=== PATIENT | male | born 1955 | race African-American/Black ===

== ENCOUNTER 2019-07-15 11:18 | Inpatient (IN) | payer OTHER ==
--- NOTE | 2019-07-15 11:33 | BHS.RME ---
Substance Use & Tx History - Substance Use History Alcohol Substance amount: 1 pint vodka and beers Frequency of use: Daily Substance route: Oral Date of Last Use: 07/15/19 Physical/Psych/Mental Status - Behavior General Behavior: Increased activity (restlessness, agitation) Eye Contact: Normal - Cooperativeness Cooperativeness: Reluctant - Thinking Thought Processes: Tight, Logical, Goal Directed Thought content: Future oriented - Physical Health Problems Is patient presently having any pain?: No Does patient presently have any injuries (include location): No Does patient currently have a fever: No Is patient : No CIWA Nausea/Vomitin-No Nausea/No Vomiting Muscle Tremors: 4-Moderate,w/Arms Extend Anxiety: 3 Agitation: 4-Moderately Restless Paroxysmal Sweats: 4-Forehead w/Sweat Beads Orientation: 1-Uncertain about Date Tacttile Disturbances: 0-None Auditory Disturbances: 0-None Visual Disturbances: 0-None Headache: 0-None Present CIWA-Ar Total Score: 16
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
[2019-07-15] MEDS ORDERED: MAGNESIUM CITRATE 300 ML BOTTLE PO PRN (14:21)
[2019-07-15] MEDS ORDERED: BISMUTH SUBSALICYLATE 524 MG/30 ML UD PO PRN (14:21)
[2019-07-15] MEDS ORDERED: MENTHOL/PHENOL 1 EACH UD MM PRN (14:21)
[2019-07-15] MEDS ORDERED: ACETAMINOPHEN 325 MG TABLET (FP) PO PRN ×2 (14:21)
[2019-07-15] MEDS ORDERED: IBUPROFEN 400 MG TABLET (FP) PO PRN (14:21)
[2019-07-15] MEDS ORDERED: MAG HYDROX/AL HYDROX/SIMETH 30 ML UNIT-DOSE CUP PO PRN (14:21)
[2019-07-15] MEDS ORDERED: chlordiazePOXIDE HCL 25 MG CAPSULE PO PRN (14:21)
[2019-07-15] MEDS ORDERED: MAGNESIUM HYDROX 2400MG/30ML ORAL SUSPENSION 30 ML CUP PO PRN (14:21)
[2019-07-15] MEDS ORDERED: METHOCARBAMOL 500 MG TABLET PO PRN (14:21)
[2019-07-15 15:46] VITALS: BMI 25.2
[2019-07-15] MEDS ORDERED: ONDANSETRON *ODT* 4 MG TABLET SL ONE (16:15)
[2019-07-15] MEDS ORDERED: FUROSEMIDE 20 MG TABLET (FP) PO SCH (16:15)
[2019-07-15] MEDS ORDERED: IBUPROFEN 400 MG TABLET (FP) PO ONE (16:15)
[2019-07-15] MEDS ORDERED: chlordiazePOXIDE HCL 25 MG CAPSULE PO SCH (17:00)
[2019-07-15 17:21] LABS: HEMATOCRIT 37.3 % (35.4-49); HEMOGLOBIN 12.4 GM/dL (11.7-16.9); MCH 32.8 pg (25.7-33.7); MCHC 33.3 g/dl (32.0-35.9); MEAN CELL VOLUME 98.3 fl (80-96); MEAN PLT VOLUME 8.4 fl (7.5-11.1); PLATELET COUNT 600 K/MM3 (134-434); RDW 14.2 % (11.9-15.9); WHITE BLOOD COUNT 4.2 K/mm3 (4.0-10.0)
[2019-07-15] MEDS: FUROSEMIDE 40 MG TABLET (FP) PO SCH (17:21)
[2019-07-15] MEDS: metoPROLOL SUCCINATE 25 MG TAB.SR.24H (FP) PO SCH (17:21)
[2019-07-15] MEDS: TAMSULOSIN HCL 0.4 MG CAP PO SCH (17:21)
[2019-07-15] MEDS: hydrOXYzine PAMOATE 25 MG CAPSULE (FP) PO SCH ×2 (17:21→21:25)
[2019-07-15 17:30] LABS: ALBUMIN 3.7 g/dl (3.4-5.0); BILIRUBIN,TOTAL 0.9 mg/dL (0.2-1); BLOOD UREA NITROGEN 5.6 mg/dL (7-18); CALCIUM 9.5 mg/dL (8.5-10.1); CREATININE 0.8 mg/dL (0.55-1.3); POTASSIUM 4.2 mmol/L (3.5-5.1); TOT PROT 7.2 g/dl (6.4-8.2)
--- NOTE | 2019-07-15 21:19 | PN ---
BHS Progress Note Note: called by nursing re : abnormal BP Vital Signs - 24 hr 07/15/19 07/15/19 15:43 16:33 Temperature 98.9 F 100.0 F H Pulse Rate 122 H 127 H Respiratory 18 18 Rate Blood Pressure 154/87 146/87 Vital Signs - 24 hr 07/15/19 07/15/19 07/15/19 15:43 16:33 21:17 Temperature 98.9 F 100.0 F H 97.0 F L Pulse Rate 122 H 127 H 97 H Respiratory 18 18 19 Rate Blood Pressure 154/87 146/87 161/89 P : metoprolol 25 mg x once
[2019-07-15] MEDS ORDERED: METOPROLOL TARTRATE 25 MG TABLET (FP) PO ONE (21:20)
[2019-07-15] MEDS: MELATONIN 5 MG TABLETS PO SCH (21:25)
[2019-07-15] MEDS: THIAMINE HCL 100 MG TABLET (FP) PO SCH (21:25)
[2019-07-15] MEDS: chlordiazePOXIDE HCL 25 MG CAPSULE PO SCH (21:25)
[2019-07-16] MEDS: chlordiazePOXIDE HCL 25 MG CAPSULE PO SCH (05:34)
[2019-07-16] MEDS: hydrOXYzine PAMOATE 25 MG CAPSULE (FP) PO SCH ×5 (05:35→22:58)
--- NOTE | 2019-07-16 10:01 | PN ---
S CIWA - CIWA Score Nausea/Vomitin Muscle Tremors: 3 Anxiety: 3 Agitation: 1-Slight > Activity Paroxysmal Sweats: 2 Orientation: 0-Oriented Tacttile Disturbances: 0-None Auditory Disturbances: 0-None Visual Disturbances: 1-Very Mild Sensitivity Headache: 1-Very Mild CIWA-Ar Total Score: 13 S Progress Note (SOAP) Subjective: 64 years old male admitted on 07/15/19 for alcohol withdrawal sx management treating [facility] detox regiment ambulating with wheelchair from room to hallway ekg indicts sinus tachycardia with premature ventricular complex and history of septal infarct no previous ekg for comparison patient denies chest pain no shortness of breath ate breakfast tolerated food and fluid well Objective: 07/16/19 10:04 Vital Signs Temperature 99.4 F 07/16/19 07:49 Pulse Rate 106 H 07/16/19 07:49 Respiratory Rate 20 07/16/19 07:49 Blood Pressure 120/67 07/16/19 07:49 O2 Sat by Pulse Oximetry (%) Laboratory Last Values WBC 4.2 K/mm3 (4.0-10.0) 07/15/19 15:00 RBC 3.80 M/mm3 (4.00-5.60) L 07/15/19 15:00 Hgb 12.4 GM/dL (11.7-16.9) 07/15/19 15:00 Hct 37.3 % (35.4-49) 07/15/19 15:00 MCV 98.3 fl (80-96) H 07/15/19 15:00 MCH 32.8 pg (25.7-33.7) 07/15/19 15:00 MCHC 33.3 g/dl (32.0-35.9) 07/15/19 15:00 RDW 14.2 % (11.9-15.9) 07/15/19 15:00 Plt Count 600 K/MM3 (134-434) H 07/15/19 15:00 MPV 8.4 fl (7.5-11.1) 07/15/19 15:00 Platelet Comment Giant platelets 07/15/19 15:00 Sodium 143 mmol/L (136-145) 07/15/19 15:00 Potassium 4.2 mmol/L (3.5-5.1) 07/15/19 15:00 Chloride 106 mmol/L (98-107) 07/15/19 15:00 Carbon Dioxide 26 mmol/L (21-32) 07/15/19 15:00 Anion Gap 11 MMOL/L (8-16) 07/15/19 15:00 BUN 5.6 mg/dL (7-18) L 07/15/19 15:00 Creatinine 0.8 mg/dL (0.55-1.3) 07/15/19 15:00 Est GFR (CKD-EPI)AfAm 108.65 07/15/19 15:00 Est GFR (CKD-EPI)NonAf 93.74 07/15/19 15:00 Random Glucose 126 mg/dL (74-106) H 07/15/19 15:00 Calcium 9.5 mg/dL (8.5-10.1) 07/15/19 15:00 Total Bilirubin 0.9 mg/dL (0.2-1) 07/15/19 15:00 AST 162 U/L (15-37) H 07/15/19 15:00 ALT 88 U/L (13-61) H 07/15/19 15:00 Alkaline Phosphatase 61 U/L (45-117) 07/15/19 15:00 Total Protein 7.2 g/dl (6.4-8.2) 07/15/19 15:00 Albumin 3.7 g/dl (3.4-5.0) 07/15/19 15:00 RPR Titer Nonreactive (NONREACTIVE) 07/15/19 15:00 lab noted 07/16/19 10:14 ast elevation discontinue librium begin ativan detox regiment patient agrees glucose elevation fasting glucose 07/16/19 10:16 plt elevation begin aspirin Assessment: 07/16/19 10:17 alcohol withdrawal Plan: librium regiment
[2019-07-16] MEDS ORDERED: LORazepam 1 MG TABLET PO PRN (10:13)
[2019-07-16] MEDS: FUROSEMIDE 40 MG TABLET (FP) PO SCH (10:42)
[2019-07-16] MEDS: metoPROLOL SUCCINATE 25 MG TAB.SR.24H (FP) PO SCH (10:42)
[2019-07-16] MEDS: TAMSULOSIN HCL 0.4 MG CAP PO SCH (10:42)
[2019-07-16] MEDS: PRENATAL VITAMINS W/ FOLIC ACID TABLET (FP) PO SCH (10:42)
[2019-07-16] MEDS: ASPIRIN 81 MG CHEWABLE TABLETS PO SCH (10:45)
[2019-07-16] MEDS: LORazepam 2 MG TABLET PO SCH ×3 (12:54→22:58)
--- NOTE | 2019-07-16 14:07 | EKG ---
Test Reason : Blood Pressure : / mmHG Vent. Rate : 129 BPM Atrial Rate : 129 BPM P-R Int : 146 ms QRS Dur : 074 ms QT Int : 308 ms P-R-T Axes : 076 077 076 degrees QTc Int : 451 ms POOR DATA QUALITY, INTERPRETATION MAY BE ADVERSELY AFFECTED SINUS TACHYCARDIA WITH PREMATURE SUPRAVENTRICULAR COMPLEXES MINIMAL VOLTAGE CRITERIA FOR LVH, MAY BE NORMAL VARIANT BORDERLINE ECG NO PREVIOUS ECGS AVAILABLE Confirmed by PREET WHITMAN, ADAMA ([id number]) on 07/16/2019 2:06:29 PM Referred By: Confirmed By:ADAMA OVIEOD MD
[2019-07-16] MEDS: MELATONIN 5 MG TABLETS PO SCH (22:58)
[2019-07-16] MEDS: THIAMINE HCL 100 MG TABLET (FP) PO SCH (22:58)
[2019-07-17] MEDS ORDERED: chlordiazePOXIDE 5 MG CAPSULE PO SCH (05:00)
[2019-07-17] MEDS ORDERED: chlordiazePOXIDE HCL 25 MG CAPSULE PO SCH (05:00)
[2019-07-17] MEDS: hydrOXYzine PAMOATE 25 MG CAPSULE (FP) PO SCH ×5 (06:07→22:46)
[2019-07-17] MEDS: LORazepam 1 MG TABLET PO SCH ×4 (06:07→22:39)
--- NOTE | 2019-07-17 10:15 | PN ---
[facility] CIWA - CIWA Score Nausea/Vomitin-No Nausea/No Vomiting Muscle Tremors: None Anxiety: 0-No Anxiety, at Ease Agitation: 0-Normal Activity Paroxysmal Sweats: 1-Minimal Palms Moist Orientation: 3-Disoriented Date>2 days Tacttile Disturbances: 0-None Auditory Disturbances: 0-None Visual Disturbances: 0-None Headache: 0-None Present CIWA-Ar Total Score: 4 BHS Progress Note (SOAP) Subjective: No complaints Objective: 07/17/19 10:13 Laboratory Tests 07/15/19 07/15/19 07/15/19 15:00 15:00 15:00 WBC 4.2 RBC 3.80 L Hgb 12.4 Hct 37.3 MCV 98.3 H MCH 32.8 MCHC 33.3 RDW 14.2 Plt Count 600 H MPV 8.4 Platelet Comment Giant platelets Sodium 143 Potassium 4.2 Chloride 106 Carbon Dioxide 26 Anion Gap 11 BUN 5.6 L Creatinine 0.8 Est GFR (CKD-EPI)AfAm 108.65 Est GFR (CKD-EPI)NonAf 93.74 Random Glucose 126 H Calcium 9.5 Total Bilirubin 0.9 AST 162 H ALT 88 H Alkaline Phosphatase 61 Total Protein 7.2 Albumin 3.7 RPR Titer Nonreactive Vital Signs - 24 hr 07/16/19 07/16/19 07/16/19 13:01 15:00 16:51 Temperature 97.9 F 99.2 F Pulse Rate 121 H 100 H 138 H Respiratory 16 18 Rate Blood Pressure 121/67 120/83 07/16/19 07/16/19 07/16/19 18:00 21:06 23:34 Temperature 100.7 F H 97.8 F Pulse Rate 100 H 131 H 78 Respiratory 19 Rate Blood Pressure 103/26 L 07/17/19 07/17/19 07/17/19 00:35 03:30 06:16 Temperature 99.2 F Pulse Rate 65 Respiratory 18 16 18 Rate Blood Pressure 112/65 07/17/19 09:18 Temperature 97.1 F L Pulse Rate 128 H Respiratory 20 Rate Blood Pressure 103/60 PE Gnl: WDWN, in no distress, malodorous MS: awake, states the date is the 16, follows commands Motor: nl UE movement Assessment: 07/17/19 10:14 1. alcohol use disorder, disoriented to date may be secondary to EtOH withdrawal for developing dementia/ unclear 2. mildly elevated glucose on admission Plan: 1. continue Ativan withdrawal, elevated LFTs 2. FBS
[2019-07-17] MEDS: PRENATAL VITAMINS W/ FOLIC ACID TABLET (FP) PO SCH (10:36)
[2019-07-17] MEDS: TAMSULOSIN HCL 0.4 MG CAP PO SCH (10:36)
[2019-07-17] MEDS: FUROSEMIDE 40 MG TABLET (FP) PO SCH (10:37)
[2019-07-17] MEDS: ASPIRIN 81 MG CHEWABLE TABLETS PO SCH (10:37)
[2019-07-17] MEDS: metoPROLOL SUCCINATE 25 MG TAB.SR.24H (FP) PO SCH (10:37)
[2019-07-17 10:42] LABS: PH,URINE >= 9.0 (5.0-8.0); URINE APPEARANCE CLEAR; URINE BILIRUBIN 1+ (NEGATIVE); URINE COLOR DK YELLOW; URINE GLUCOSE (UA) NEGATIVE (NEGATIVE); URINE KETONE NEGATIVE (NEGATIVE); URINE LEUK ESTERASE NEGATIVE (NEGATIVE); URINE NITRITE NEGATIVE (NEGATIVE); URINE PROTEIN TRACE (NEGATIVE)
--- NOTE | 2019-07-17 10:59 | EKG ---
Test Reason : Blood Pressure : / mmHG Vent. Rate : 117 BPM Atrial Rate : 117 BPM P-R Int : 152 ms QRS Dur : 076 ms QT Int : 354 ms P-R-T Axes : 065 074 071 degrees QTc Int : 493 ms SINUS TACHYCARDIA WITH OCCASIONAL and consecutive PREMATURE VENTRICULAR COMPLEXES CANNOT RULE OUT SEPTAL INFARCT , AGE UNDETERMINED ABNORMAL ECG Confirmed by MARY WARNER MD ([id number]) on 07/17/2019 10:59:13 AM Referred By: Confirmed By:MARY WARNER MD
--- NOTE | 2019-07-17 15:14 | PN ---
S Progress Note Note: EKG repeated Poor quality, ST at 117, PACs, LVH, prolonged QT (544 ms) Per pt he has an "enlarged heart" No complaints of SOB, chest pain, palpitations Prior EKG on 07/14 questions septal infarct No sx to suggest acute infarct however, will order troponin
--- NOTE | 2019-07-17 15:20 | PN ---
[facility] Progress Note Note: Staff noting diarrhea Pt seen: no abdominal pain Vital Signs Temperature 97.1 F L 07/17/19 09:18 Pulse Rate 128 H 07/17/19 09:18 Respiratory Rate 20 07/17/19 09:18 Blood Pressure 103/60 07/17/19 09:18 O2 Sat by Pulse Oximetry (%) Plan 1. stool for C diff 2. add Imodium x 1
[2019-07-17] MEDS ORDERED: LOPERAMIDE HCL 2 MG CAPSULE PO ONE (15:30)
[2019-07-17] MEDS ORDERED: POTASSIUM CHLORIDE TABS 20 MEQ TABLET.ER (FP) PO ONE (15:30)
[2019-07-17] MEDS ORDERED: MAGNESIUM OXIDE 400 MG TABLET (FP) PO ONE (15:31)
--- NOTE | 2019-07-17 15:35 | PN ---
S Progress Note Note: Tachycardic, may be related to diarrhea will supplement potassium and magnesium will check lytes in am
[2019-07-17] MEDS: THIAMINE HCL 100 MG TABLET (FP) PO SCH (22:39)
[2019-07-17] MEDS: MELATONIN 5 MG TABLETS PO SCH (22:40)
[2019-07-18] MEDS ORDERED: chlordiazePOXIDE HCL 10 MG CAPSULE PO PRN
[2019-07-18] MEDS ORDERED: LORazepam 0.5 MG TABLET PO PRN
[2019-07-18] MEDS ORDERED: chlordiazePOXIDE HCL 10 MG CAPSULE PO SCH ×2 (05:00)
[2019-07-18] MEDS: LORazepam 0.5 MG TABLET PO SCH ×4 (06:30→23:41)
[2019-07-18] MEDS: hydrOXYzine PAMOATE 25 MG CAPSULE (FP) PO SCH ×5 (06:30→23:40)
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
[2019-07-18 09:37] LABS: BLOOD UREA NITROGEN 16.3 mg/dL (7-18); CALCIUM 9.4 mg/dL (8.5-10.1); CREATININE 0.8 mg/dL (0.55-1.3); MAGNESIUM 1.3 mg/dL (1.8-2.4); POTASSIUM 4.9 mmol/L (3.5-5.1)
[2019-07-18] MEDS: metoPROLOL SUCCINATE 25 MG TAB.SR.24H (FP) PO SCH (10:12)
[2019-07-18] MEDS: ASPIRIN 81 MG CHEWABLE TABLETS PO SCH (10:12)
[2019-07-18] MEDS: FUROSEMIDE 40 MG TABLET (FP) PO SCH (10:12)
[2019-07-18] MEDS: PRENATAL VITAMINS W/ FOLIC ACID TABLET (FP) PO SCH (10:12)
[2019-07-18] MEDS: TAMSULOSIN HCL 0.4 MG CAP PO SCH (10:13)
--- NOTE | 2019-07-18 10:31 | EKG ---
Test Reason : Blood Pressure : / mmHG Vent. Rate : 117 BPM Atrial Rate : 117 BPM P-R Int : 140 ms QRS Dur : 072 ms QT Int : 390 ms P-R-T Axes : 080 073 058 degrees QTc Int : 544 ms POOR DATA QUALITY, INTERPRETATION MAY BE ADVERSELY AFFECTED SINUS TACHYCARDIA WITH PREMATURE ATRIAL COMPLEXES MINIMAL VOLTAGE CRITERIA FOR LVH, MAY BE NORMAL VARIANT PROLONGED QT ABNORMAL ECG Confirmed by Fernando Donahue MD ([id number]) on 07/18/2019 10:31:08 AM Referred By: Confirmed By:Fernando Donahue MD
--- NOTE | 2019-07-18 11:16 | PN ---
S CIWA - CIWA Score Nausea/Vomitin-No Nausea/No Vomiting Muscle Tremors: None Anxiety: 2 Agitation: 0-Normal Activity Paroxysmal Sweats: 1-Minimal Palms Moist Orientation: 0-Oriented Tacttile Disturbances: 0-None Auditory Disturbances: 0-None Visual Disturbances: 0-None Headache: 0-None Present CIWA-Ar Total Score: 3 BHS Progress Note (SOAP) Subjective: c/o mild withdrawal symptoms. Objective: 07/18/19 11:15 Vital Signs 07/18/19 07/18/19 07/18/19 06:25 07:40 07:55 Temperature 97.0 F L 98.1 F 98.1 F Pulse Rate 106 H 127 H 127 H Respiratory 18 16 18 Rate Blood Pressure 114/75 125/78 125/70 07/18/19 07/18/19 07/18/19 07:58 08:58 09:40 Temperature 97.1 F L 98.1 F Pulse Rate 69 53 L 76 Respiratory 18 18 Rate Blood Pressure 109/64 115/71 Laboratory Last Values WBC 4.2 K/mm3 (4.0-10.0) 07/15/19 15:00 RBC 3.80 M/mm3 (4.00-5.60) L 07/15/19 15:00 Hgb 12.4 GM/dL (11.7-16.9) 07/15/19 15:00 Hct 37.3 % (35.4-49) 07/15/19 15:00 MCV 98.3 fl (80-96) H 07/15/19 15:00 MCH 32.8 pg (25.7-33.7) 07/15/19 15:00 MCHC 33.3 g/dl (32.0-35.9) 07/15/19 15:00 RDW 14.2 % (11.9-15.9) 07/15/19 15:00 Plt Count 600 K/MM3 (134-434) H 07/15/19 15:00 MPV 8.4 fl (7.5-11.1) 07/15/19 15:00 Platelet Comment Giant platelets 07/15/19 15:00 Sodium 139 mmol/L (136-145) 07/18/19 07:50 Potassium 4.9 mmol/L (3.5-5.1) 07/18/19 07:50 Chloride 103 mmol/L (98-107) 07/18/19 07:50 Carbon Dioxide 27 mmol/L (21-32) 07/18/19 07:50 Anion Gap 9 MMOL/L (8-16) 07/18/19 07:50 BUN 16.3 mg/dL (7-18) 07/18/19 07:50 Creatinine 0.8 mg/dL (0.55-1.3) 07/18/19 07:50 Est GFR (CKD-EPI)AfAm 108.65 07/18/19 07:50 Est GFR (CKD-EPI)NonAf 93.74 07/18/19 07:50 Random Glucose 82 mg/dL (74-106) 07/18/19 07:50 Fasting Glucose Cancelled 07/18/19 07:40 Calcium 9.4 mg/dL (8.5-10.1) 07/18/19 07:50 Magnesium 1.3 mg/dL (1.8-2.4) L 07/18/19 07:50 Total Bilirubin 0.9 mg/dL (0.2-1) 07/15/19 15:00 AST 176 U/L (15-37) H 07/18/19 07:50 AST Cancelled 07/18/19 07:50 ALT 88 U/L (13-61) H 07/15/19 15:00 Alkaline Phosphatase 61 U/L (45-117) 07/15/19 15:00 Troponin I < 0.02 ng/ml (0.00-0.05) 07/17/19 15:15 Total Protein 7.2 g/dl (6.4-8.2) 07/15/19 15:00 Albumin 3.7 g/dl (3.4-5.0) 07/15/19 15:00 Urine Color Dk yellow 07/16/19 07:45 Urine Appearance Clear 07/16/19 07:45 Urine pH >= 9.0 (5.0-8.0) H 07/16/19 07:45 Ur Specific [place] 1.020 (1.010-1.035) 07/16/19 07:45 Urine Protein Trace (NEGATIVE) 07/16/19 07:45 Urine Glucose (UA) Negative (NEGATIVE) 07/16/19 07:45 Urine Ketones Negative (NEGATIVE) 07/16/19 07:45 Urine Blood Negative (NEGATIVE) 07/16/19 07:45 Urine Nitrite Negative (NEGATIVE) 07/16/19 07:45 Urine Bilirubin 1+ (NEGATIVE) H 07/16/19 07:45 Urine Urobilinogen 2.0 mg/dL (0.2-1.0) 07/16/19 07:45 Ur Leukocyte Esterase Negative (NEGATIVE) 07/16/19 07:45 RPR Titer Nonreactive (NONREACTIVE) 07/15/19 15:00 Labs noted. Assessment: 07/18/19 11:15 AOX3, in no acute respiratory distress. Full ROM, ambulating in the unit. Mild Withdrawal symptoms. On fall precaution For d/c tomorrow. 07/18/19 11:16 Plan: continue detox. Maintain fall prevention protocol. D/C in AM.
[2019-07-18] MEDS: THIAMINE HCL 100 MG TABLET (FP) PO SCH (23:40)
[2019-07-18] MEDS: MELATONIN 5 MG TABLETS PO SCH (23:40)
[2019-07-19] MEDS ORDERED: LORazepam 0.5 MG TABLET PO ONE (05:00)
[2019-07-19] MEDS ORDERED: chlordiazePOXIDE HCL 10 MG CAPSULE PO SCH (05:00)
[2019-07-19] MEDS: hydrOXYzine PAMOATE 25 MG CAPSULE (FP) PO SCH (06:02)
--- NOTE | 2019-07-19 09:17 | PN ---
[facility] CIWA - CIWA Score Nausea/Vomitin-No Nausea/No Vomiting Muscle Tremors: 1-None Visible, but [place] Anxiety: 0-No Anxiety, at Ease Agitation: 1-Slight > Activity Paroxysmal Sweats: No Perspiration Orientation: 0-Oriented Tacttile Disturbances: 0-None Auditory Disturbances: 0-None Visual Disturbances: 0-None Headache: 0-None Present CIWA-Ar Total Score: 2 BHS Progress Note (SOAP) Subjective: 64 years old admitted on 07/15/19 for alcohol withdrawal sx management treating with librium detox regiment witnessed fall yesterday 07/18/19 denies pain no visible injury ambulating with cane continue observing for safe discharge Objective: 07/19/19 09:20 Vital Signs Temperature 98.4 F 07/19/19 06:55 Pulse Rate 75 07/19/19 06:55 Respiratory Rate 18 07/19/19 06:55 Blood Pressure 117/60 07/19/19 06:55 O2 Sat by Pulse Oximetry (%) Laboratory Last Values WBC 4.2 K/mm3 (4.0-10.0) 07/15/19 15:00 RBC 3.80 M/mm3 (4.00-5.60) L 07/15/19 15:00 Hgb 12.4 GM/dL (11.7-16.9) 07/15/19 15:00 Hct 37.3 % (35.4-49) 07/15/19 15:00 MCV 98.3 fl (80-96) H 07/15/19 15:00 MCH 32.8 pg (25.7-33.7) 07/15/19 15:00 MCHC 33.3 g/dl (32.0-35.9) 07/15/19 15:00 RDW 14.2 % (11.9-15.9) 07/15/19 15:00 Plt Count 600 K/MM3 (134-434) H 07/15/19 15:00 MPV 8.4 fl (7.5-11.1) 07/15/19 15:00 Platelet Comment Giant platelets 07/15/19 15:00 Sodium 139 mmol/L (136-145) 07/18/19 07:50 Potassium 4.9 mmol/L (3.5-5.1) 07/18/19 07:50 Chloride 103 mmol/L (98-107) 07/18/19 07:50 Carbon Dioxide 27 mmol/L (21-32) 07/18/19 07:50 Anion Gap 9 MMOL/L (8-16) 07/18/19 07:50 BUN 16.3 mg/dL (7-18) 07/18/19 07:50 Creatinine 0.8 mg/dL (0.55-1.3) 07/18/19 07:50 Est GFR (CKD-EPI)AfAm 108.65 07/18/19 07:50 Est GFR (CKD-EPI)NonAf 93.74 07/18/19 07:50 Random Glucose 82 mg/dL (74-106) 07/18/19 07:50 Fasting Glucose Cancelled 07/18/19 07:40 Calcium 9.4 mg/dL (8.5-10.1) 07/18/19 07:50 Magnesium 1.3 mg/dL (1.8-2.4) L 07/18/19 07:50 Total Bilirubin 0.9 mg/dL (0.2-1) 07/15/19 15:00 AST 176 U/L (15-37) H 07/18/19 07:50 AST Cancelled 07/18/19 07:50 ALT 88 U/L (13-61) H 07/15/19 15:00 Alkaline Phosphatase 61 U/L (45-117) 07/15/19 15:00 Troponin I < 0.02 ng/ml (0.00-0.05) 07/17/19 15:15 Total Protein 7.2 g/dl (6.4-8.2) 07/15/19 15:00 Albumin 3.7 g/dl (3.4-5.0) 07/15/19 15:00 Urine Color Dk yellow 07/16/19 07:45 Urine Appearance Clear 07/16/19 07:45 Urine pH >= 9.0 (5.0-8.0) H 07/16/19 07:45 Ur Specific [place] 1.020 (1.010-1.035) 07/16/19 07:45 Urine Protein Trace (NEGATIVE) 07/16/19 07:45 Urine Glucose (UA) Negative (NEGATIVE) 07/16/19 07:45 Urine Ketones Negative (NEGATIVE) 07/16/19 07:45 Urine Blood Negative (NEGATIVE) 07/16/19 07:45 Urine Nitrite Negative (NEGATIVE) 07/16/19 07:45 Urine Bilirubin 1+ (NEGATIVE) H 07/16/19 07:45 Urine Urobilinogen 2.0 mg/dL (0.2-1.0) 07/16/19 07:45 Ur Leukocyte Esterase Negative (NEGATIVE) 07/16/19 07:45 RPR Titer Nonreactive (NONREACTIVE) 07/15/19 15:00 lab noted Assessment: 07/19/19 09:20 alcohol withdrawal Plan: librium regiment due to Mr Luu age and co-morbidity continue observing the consequences of fall discontinue vistaril
[2019-07-19] MEDS: TAMSULOSIN HCL 0.4 MG CAP PO SCH (10:27)
[2019-07-19] MEDS: PRENATAL VITAMINS W/ FOLIC ACID TABLET (FP) PO SCH (10:27)
[2019-07-19] MEDS: metoPROLOL SUCCINATE 25 MG TAB.SR.24H (FP) PO SCH (10:27)
[2019-07-19] MEDS: ASPIRIN 81 MG CHEWABLE TABLETS PO SCH (10:28)
[2019-07-19] MEDS: FUROSEMIDE 40 MG TABLET (FP) PO SCH (10:28)
[2019-07-19] MEDS: THIAMINE HCL 100 MG TABLET (FP) PO SCH (23:34)
[2019-07-19] MEDS: MELATONIN 5 MG TABLETS PO SCH (23:34)
[2019-07-20] MEDS ORDERED: chlordiazePOXIDE HCL 10 MG CAPSULE PO ONE (05:00)
[2019-07-20] MEDS: TAMSULOSIN HCL 0.4 MG CAP PO SCH (11:36)
[2019-07-20] MEDS: metoPROLOL SUCCINATE 25 MG TAB.SR.24H (FP) PO SCH (11:36)
[2019-07-20] MEDS: ASPIRIN 81 MG CHEWABLE TABLETS PO SCH (11:36)
[2019-07-20] MEDS: FUROSEMIDE 40 MG TABLET (FP) PO SCH (11:36)
[2019-07-20] MEDS: PRENATAL VITAMINS W/ FOLIC ACID TABLET (FP) PO SCH (11:36)
[2019-07-20 13:22] VITALS: BP 111/71; PULSE 89; TEMP 98.8
--- NOTE | 2019-07-20 15:49 | DS ---
[facility] Detox Discharge Summary Admission Date: 07/15/19 Discharge Date: 07/20/19 - History Present History: Alcohol Dependence Additional Comments: 64 years old male admitted on 07/15/19 for alcohol withdrawal sx management treated wtih librium detox regiment Mr Solis has completed librium regiment and is tolerated well ambulating with cane slow and steady alert oriented x 3 speech clearly coherently no post fall (07/19/19) sequela noted at this time patient wants to go home with 5 days home health aid respiratory clear lung bilaterally on auscultation skin warm and dry abdomen soft no rebound tenderness Pertinent Past History: time for discharge 58 minutes - Physical Exam Results Vital Signs: Vital Signs Temperature 98.8 F 07/20/19 12:40 Pulse Rate 89 07/20/19 12:40 Respiratory Rate 18 07/20/19 12:40 Blood Pressure 111/71 07/20/19 12:40 O2 Sat by Pulse Oximetry (%) Pertinent Admission Physical Exam Findings: alcohol withdrawal Laboratory Last Values WBC 4.2 K/mm3 (4.0-10.0) 07/15/19 15:00 RBC 3.80 M/mm3 (4.00-5.60) L 07/15/19 15:00 Hgb 12.4 GM/dL (11.7-16.9) 07/15/19 15:00 Hct 37.3 % (35.4-49) 07/15/19 15:00 MCV 98.3 fl (80-96) H 07/15/19 15:00 MCH 32.8 pg (25.7-33.7) 07/15/19 15:00 MCHC 33.3 g/dl (32.0-35.9) 07/15/19 15:00 RDW 14.2 % (11.9-15.9) 07/15/19 15:00 Plt Count 600 K/MM3 (134-434) H 07/15/19 15:00 MPV 8.4 fl (7.5-11.1) 07/15/19 15:00 Platelet Comment Giant platelets 07/15/19 15:00 Sodium 139 mmol/L (136-145) 07/18/19 07:50 Potassium 4.9 mmol/L (3.5-5.1) 07/18/19 07:50 Chloride 103 mmol/L (98-107) 07/18/19 07:50 Carbon Dioxide 27 mmol/L (21-32) 07/18/19 07:50 Anion Gap 9 MMOL/L (8-16) 07/18/19 07:50 BUN 16.3 mg/dL (7-18) 07/18/19 07:50 Creatinine 0.8 mg/dL (0.55-1.3) 07/18/19 07:50 Est GFR (CKD-EPI)AfAm 108.65 07/18/19 07:50 Est GFR (CKD-EPI)NonAf 93.74 07/18/19 07:50 Random Glucose 82 mg/dL (74-106) 07/18/19 07:50 Fasting Glucose Cancelled 07/18/19 07:40 Calcium 9.4 mg/dL (8.5-10.1) 07/18/19 07:50 Magnesium 1.3 mg/dL (1.8-2.4) L 07/18/19 07:50 Total Bilirubin 0.9 mg/dL (0.2-1) 07/15/19 15:00 AST 176 U/L (15-37) H 07/18/19 07:50 AST Cancelled 07/18/19 07:50 ALT 88 U/L (13-61) H 07/15/19 15:00 Alkaline Phosphatase 61 U/L (45-117) 07/15/19 15:00 Troponin I < 0.02 ng/ml (0.00-0.05) 07/17/19 15:15 Total Protein 7.2 g/dl (6.4-8.2) 07/15/19 15:00 Albumin 3.7 g/dl (3.4-5.0) 07/15/19 15:00 Urine Color Dk yellow 07/16/19 07:45 Urine Appearance Clear 07/16/19 07:45 Urine pH >= 9.0 (5.0-8.0) H 07/16/19 07:45 Ur Specific [place] 1.020 (1.010-1.035) 07/16/19 07:45 Urine Protein Trace (NEGATIVE) 07/16/19 07:45 Urine Glucose (UA) Negative (NEGATIVE) 07/16/19 07:45 Urine Ketones Negative (NEGATIVE) 07/16/19 07:45 Urine Blood Negative (NEGATIVE) 07/16/19 07:45 Urine Nitrite Negative (NEGATIVE) 07/16/19 07:45 Urine Bilirubin 1+ (NEGATIVE) H 07/16/19 07:45 Urine Urobilinogen 2.0 mg/dL (0.2-1.0) 07/16/19 07:45 Ur Leukocyte Esterase Negative (NEGATIVE) 07/16/19 07:45 RPR Titer Nonreactive (NONREACTIVE) 07/15/19 15:00 lab noted return to primary care provider for follow up ast elevation - Treatment Hospital Course: Detox Protocol Followed, Detoxed Safely, Responded well, Discharged Condition Good, Rehab Referral Accepted Patient has Accepted a Rehab Referral to: primary care teaching dietitian - Medication Discharge Medications: Ambulatory Orders Furosemide [Lasix -] 0 mg PO DAILY 07/15/19 Metoprolol Succinate [Toprol Xl] 25 mg PO DAILY 07/15/19 Naproxen [Naprosyn -] 500 mg PO BID 07/15/19 Nifedipine [Adalat cc] 30 mg PO DAILY 07/15/19 Tamsulosin HCl [Flomax] 0.4 mg PO DAILY 07/15/19 - Diagnosis (1) Ambulates with cane Status: Chronic (2) CHF (congestive heart failure) Status: Chronic Qualifiers: Heart failure type: unspecified Heart failure chronicity: chronic Qualified Code(s): I50.9 - Heart failure, unspecified (3) Alcohol abuse with intoxication, uncomplicated Status: Acute (4) HTN (hypertension) Status: Chronic Qualifiers: Hypertension type: essential hypertension Qualified Code(s): I10 - Essential (primary) hypertension - AMA Did Patient Leave Against Medical Advice: No CIWA Score - CIWA Score Nausea/Vomitin-No Nausea/No Vomiting Muscle Tremors: None Anxiety: 0-No Anxiety, at Ease Agitation: 1-Slight > Activity Paroxysmal Sweats: No Perspiration Orientation: 0-Oriented Tacttile Disturbances: 0-None Auditory Disturbances: 0-None Visual Disturbances: 0-None Headache: 0-None Present CIWA-Ar Total Score: 1
== END 2019-07-20 14:54 | disposition home or self-care (01) | DRG 897 ==
LOC: YASAS 11:18 → Y3N 15:56
PROVIDERS: ADMIT Allergy & Immunology; ATTEND Allergy & Immunology
PROC: HZ2ZZZZ Detoxification Services for Substance Abuse Treatment (ICD-10-PCS; principal; 2019-07-15)
DX: F10.230 Alcohol dependence with withdrawal, uncomplicated (principal); I11.0 Hypertensive heart disease with heart failure; I50.9 Heart failure, unspecified; R00.0 Tachycardia, unspecified; R19.7 Diarrhea, unspecified; R73.9 Hyperglycemia, unspecified; R94.5 Abnormal results of liver function studies; M79.604 Pain in right leg; R26.81 Unsteadiness on feet; Z99.89 Dependence on other enabling machines and devices; Z91.81 History of falling
CPT/HCPCS: 36415; 80048; 80053; 81003; 83735; 84450; 84484; 85027; 86593; 93005; 93010; Q0162